=== PATIENT | female | born 1985 | race Caucasian/White ===

== ENCOUNTER 2020-04-20 13:12 | Emergency (ER) | payer OTHER ==
[~2020-04-20 13:12] MED LIST: ASPIRIN CHEWABL81 MG PO; ATARAX25 MG PO; ATIVAN1 MG PO; AUGMENTIN 875-1 EACH PO; BENADRYL25 MG PO; CLEOCIN300 MG PO; CLONAZEPAM0.5 M1 PO; COLACE100 MG PO; CYMBALTA 30MG C30 MG PO; CYMBALTA20 MG PO; DILAUDID2 MG PO; EFFEXOR XR37.5 MG PO; ELIQUIS5 MG PO; GABAPENTIN600 MG PO; HYDROCODON-ACE1 EAC4 PO; LACTULOSE10 G/15 ML PO; LAMICTAL5 MG PO; LEVAQUIN500 MG PO; LEVBID0.375 MG PO; LISINOPRIL-HCT1 EAC2 PO; LOPRESSOR25 MG PO; MIRALAX17 GM PO; NEURONTIN300 MG PO; NORCO 7.5-3251 EACH PO; PERCOCET 5-3251 EACH PO; PERCOCET 7.5/321 TAB PO; PHENERGAN25 M1 PO; PROTONIX 40MG T40 MG PO; REMERON15 MG PO; SEROQUEL 100MG100 MG PO; SUCRALFATE1 GM PO; SUPRAX400 MG PO; VIBRAMYCIN100 MG PO; XANAX0.25 MG PO; ZOFRAN4 MG PO; ZOFRAN8 MG PO
[2020-04-20 16:08] LABS: BASOPHIL 0.9 % (0-2); EOSINOPHIL 4.5 % (0-5); HCT 36.9 % (37.0-47.0); HGB 11.9 g/dl (12.5-16.0); LYMPHOCYTE 32.5 % (15-48); MCH 31.6 pg (25.0-31.0); MCHC 32.2 g/dL (32.0-36.0); MCV 97.9 fL (78.0-100.0); MPV 10.8 fL (6.0-9.5); NEUTROPHIL 54.5 % (41-80); NRBC 0; PLT 200 K/uL (150-400); RBC 3.77 M/uL (4.20-5.40); RDW 13.9 % (11.5-14.0); WBC 10.6 K/uL (4.0-10.5)
[2020-04-20 16:28] LABS: ALBUMIN 2.9 g/dL (3.4-5.0); BILIRUBIN - TOTAL 0.6 mg/dL (0.2-1.0); BUN/CREAT RATIO (CALC) 19.3 RATIO; CREATININE 0.88 mg/dL (0.51-0.95); GLOBULIN (CALCULATION) 3.4 g/dL; MAGNESIUM 1.7 mg/dL (1.8-2.4); TOTAL PROTEIN 6.3 g/dL (6.4-8.2)
[2020-04-20 16:32] LABS: POTASSIUM 4.5 mmol/L (3.5-5.1)
[2020-04-20] MEDS ORDERED: ROBAXIN750 MG PO ×2 (17:22→17:36)
[2020-04-20] MEDS ORDERED: ALDACTONE50 MG PO ×2 (17:22→17:36)
== END 2020-04-20 18:00 | disposition home or self-care (01) ==
LOC: FER 13:12
PROVIDERS: Emergency Medicine
DX: R60.0 Localized edema (principal); E88.09 Other disorders of plasma-protein metabolism, not elsewhere classified; I10 Essential (primary) hypertension; F17.210 Nicotine dependence, cigarettes, uncomplicated; Z88.1 Allergy status to other antibiotic agents; Z88.2 Allergy status to sulfonamides; Z88.5 Allergy status to narcotic agent; Z79.01 Long term (current) use of anticoagulants; Z79.899 Other long term (current) drug therapy
CPT/HCPCS: 36415; 80053; 82550; 83540; 83735; 83880; 84443; 85025; 93005

== ENCOUNTER 2020-06-15 05:14 | Emergency (ER) | payer OTHER ==
[~2020-06-15 05:14] MED LIST changes: +ALDACTONE50 MG PO; +ROBAXIN750 MG PO
== END 2020-06-15 08:34 | disposition home or self-care (01) ==
LOC: FER 05:14
DX: S09.90XA Unspecified injury of head, initial encounter (principal); S19.9XXA Unspecified injury of neck, initial encounter; F17.200 Nicotine dependence, unspecified, uncomplicated; Z88.2 Allergy status to sulfonamides; Z88.1 Allergy status to other antibiotic agents; Z88.5 Allergy status to narcotic agent; Z79.899 Other long term (current) drug therapy; Y04.2XXA Assault by strike against or bumped into by another person, initial encounter; Y92.009 Unspecified place in unspecified non-institutional (private) residence as the place of occurrence of the external cause
CPT/HCPCS: 70450; 70486; 72125

== ENCOUNTER 2020-07-11 20:08 | Emergency (ER) | payer OTHER ==
[2020-07-11] MEDS ORDERED: CYCLOBENZAPRINE10 MG PO (22:07)
[2020-07-11] MEDS ORDERED: NORCO 5-325 TA1 EACH PO (22:07)
== END 2020-07-11 22:20 | disposition home or self-care (01) ==
LOC: FER 20:08
DX: S13.4XXA Sprain of ligaments of cervical spine, initial encounter (principal); R10.12 Left upper quadrant pain; I10 Essential (primary) hypertension; F17.210 Nicotine dependence, cigarettes, uncomplicated; Z88.2 Allergy status to sulfonamides; Z88.6 Allergy status to analgesic agent; Z88.5 Allergy status to narcotic agent; Z79.899 Other long term (current) drug therapy; V49.40XA Driver injured in collision with unspecified motor vehicles in traffic accident, initial encounter; Y92.410 Unspecified street and highway as the place of occurrence of the external cause
CPT/HCPCS: 70450; 71250; 72125; J1885

== ENCOUNTER 2020-07-25 10:11 | Emergency (ER) | payer OTHER ==
[~2020-07-25 10:11] MED LIST changes: +CYCLOBENZAPRINE10 MG PO; +NORCO 5-325 TA1 EACH PO
== END 2020-07-25 11:09 | disposition home or self-care (01) ==
LOC: FER 10:11
DX: K08.89 Other specified disorders of teeth and supporting structures (principal); I10 Essential (primary) hypertension; F17.210 Nicotine dependence, cigarettes, uncomplicated
CPT/HCPCS: 99283; Q0163

== ENCOUNTER 2020-10-12 13:56 | Emergency (ER) | payer OTHER ==
[2020-10-12 15:22] LABS: BILIRUBIN NEGATIVE (NEGATIVE); BLOOD NEGATIVE Ery/uL (NEGATIVE); CLARITY CLEAR (CLEAR); COLOR YELLOW (YELLOW); GLUCOSE (U) NORMAL (NORMAL); LEUKOCYTES NEGATIVE Leu/uL (NEGATIVE); NITRITE NEGATIVE (NEGATIVE); PROTEIN NEGATIVE (NEGATIVE); SPECIFIC GRAVITY <=1.005 (1.001-1.030); UROBILINOGEN 0.2 mg/dL (0.2-1.0); pH 6.5 (5.0-9.0)
[2020-10-12 15:25] LABS: AMPHETAMINES NEGATIVE (NEGATIVE); BARBITURATES NEGATIVE (NEGATIVE); ECSTASY (MDMA) NEGATIVE (NEGATIVE); MARIJUANA (THC) NEGATIVE (NEGATIVE); METHADONE NEGATIVE (NEGATIVE); OPIATES POSITIVE (NEGATIVE); OXYCODONE NEGATIVE (NEGATIVE)
== END 2020-10-12 17:03 | disposition home or self-care (01) ==
LOC: FER 13:56
PROVIDERS: Nurse Practitioner Family
DX: F41.9 Anxiety disorder, unspecified (principal); R42 Dizziness and giddiness; M79.604 Pain in right leg; I10 Essential (primary) hypertension; F17.210 Nicotine dependence, cigarettes, uncomplicated; Z88.5 Allergy status to narcotic agent; Z88.1 Allergy status to other antibiotic agents; Z88.6 Allergy status to analgesic agent; Z88.2 Allergy status to sulfonamides
CPT/HCPCS: 70450; 80305; 81003; 93971

== ENCOUNTER 2020-11-15 18:54 | Emergency (ER) | payer OTHER ==
[2020-11-16 01:12] LABS: EOSINOPHIL 9.1 % (0-5); HCT 37.2 % (37.0-47.0); HGB 12.4 g/dl (12.5-16.0); LYMPHOCYTE 26.5 % (15-48); MCH 32.1 pg (25.0-31.0); MCHC 33.3 g/dL (32.0-36.0); MCV 96.4 fL (78.0-100.0); MONOCYTE 7.3 % (0-12); MPV 9.1 fL (6.0-9.5); NEUTROPHIL 55.5 % (41-80); NRBC 0; PLT 304 K/uL (150-400); RBC 3.86 M/uL (4.20-5.40); RDW 13.8 % (11.5-14.0); WBC 14.9 K/uL (4.0-10.5)
[2020-11-16 01:38] LABS: LACTIC ACID 0.8 mmol/L (0.4-1.9)
[2020-11-16 01:39] LABS: ALBUMIN 3.7 g/dL (3.4-5.0); BILIRUBIN - TOTAL 0.5 mg/dL (0.2-1.0); BUN/CREAT RATIO (CALC) 13.6 RATIO; CREATININE 0.88 mg/dL (0.51-0.95); GLOBULIN (CALCULATION) 3.6 g/dL; POTASSIUM 3.4 mmol/L (3.5-5.1); TOTAL PROTEIN 7.3 g/dL (6.4-8.2)
[2020-11-16] MEDS ORDERED: KEFLEX250 MG PO (04:30)
== END 2020-11-16 05:00 | disposition home or self-care (01) ==
LOC: FER 18:54
PROVIDERS: Emergency Medicine
DX: L02.213 Cutaneous abscess of chest wall (principal); L02.414 Cutaneous abscess of left upper limb; L02.415 Cutaneous abscess of right lower limb; I10 Essential (primary) hypertension; E11.9 Type 2 diabetes mellitus without complications; F17.200 Nicotine dependence, unspecified, uncomplicated; Z88.2 Allergy status to sulfonamides; Z88.6 Allergy status to analgesic agent; Z88.8 Allergy status to other drugs, medicaments and biological substances; Z88.1 Allergy status to other antibiotic agents
CPT/HCPCS: 36415; 80053; 83605; 85025; 86140; 87040; 96365; 96375; J1170; J2250; J2405; J3370; J7030; J7050